=== PATIENT | male | born 1985 | race Caucasian/White ===

== ENCOUNTER 2017-04-28 10:59 | Emergency (ER) | payer MEDICAID, SELFPAY ==
[~2017-04-28] VITALS: Ht 172.7 cm; Wt 70.1 kg
[2017-04-28 11:01] VITALS: BP 128/80
[2017-04-28] MEDS ORDERED: ALBUTEROL/IPRATROPIUM 2.5MG/0.5MG, 3 ML NPPB ONE (12:30)
[2017-04-28] MEDS ORDERED: ALBUTEROL/IPRATROPIUM 2.5MG/0.5MG, 3 ML ONE (12:34)
== END 2017-04-28 12:37 | disposition left against medical advice (07) ==
LOC: ED 12:31
DX: F15.10 Other stimulant abuse, uncomplicated (principal); F15.14 Other stimulant abuse with stimulant-induced mood disorder
CPT/HCPCS: 99283; J7620

== ENCOUNTER 2017-07-25 07:48 | Emergency (ER) | payer MEDICAID ==
[~2017-07-25] VITALS: Ht 172.7 cm; Wt 70.6 kg
[2017-07-25] MEDS ORDERED: SODIUM CHLORIDE FLUSH 10ML SYR IVF ONE (08:30)
[2017-07-25] MEDS ORDERED: AMPICILLIN/SULBACTAM 3 GM in SODIUM CHLORIDE 0.9% 100 ML IVPB ONE (08:30)
[2017-07-25] MEDS ORDERED: DIPH,PERTUSS(ACELL),TET VAC/PF 0.5 ML IM-VACC ONE ×2 (08:30→08:43)
[2017-07-25] MEDS ORDERED: SODIUM CHLORIDE 0.9% 1,000ML IVBOLUS ONE (08:30)
[2017-07-25 08:47] LABS: HEMATOCRIT 40.3 % (39.2-51.8); HEMOGLOBIN 13.4 g/dL (13.7-18.0); WHITE BLOOD COUNT 10.4 x10^3/uL (3.4-10)
[2017-07-25 09:00] LABS: BLOOD UREA NITROGEN 13 mg/dL (7-18)
[2017-07-25 09:01] VITALS: BP 126/81
== END 2017-07-25 10:03 | disposition left against medical advice (07) ==
LOC: ED 09:27
DX: L03.116 Cellulitis of left lower limb (principal); L03.011 Cellulitis of right finger; L03.114 Cellulitis of left upper limb
CPT/HCPCS: 36415; 80048; 82040; 85025; 90471; 90715; 96365; 99284; J0295; J7030

== ENCOUNTER 2017-08-22 23:56 | Emergency (ER) | payer MEDICAID ==
[~2017-08-22] VITALS: Ht 172.7 cm; Wt 71.5 kg
[2017-08-22 23:57] VITALS: BP 127/78
== END 2017-08-23 01:04 | disposition home or self-care (01) ==
LOC: ED 08-23 00:18
DX: F15.280 Other stimulant dependence with stimulant-induced anxiety disorder (principal)
CPT/HCPCS: 99284